=== PATIENT | male | born 2000 | race Two or more races ===

== ENCOUNTER 2024-03-06 15:10 | Outpatient (RCR) | payer MEDICAID, SELFPAY ==
--- NOTE | 2024-03-06 15:49 | PT.OIERPT ---
PT OP Initial Eval Patient Information Outpatient Physical Therapy Treatment Date: 03/06/24 Visit Reasons: LEFT KNEE PAIN Medical Diagnosis: Left Knee Pain Treatment Dx #1: Left Knee Pain Start of Care: 03/06/24 Date of Onset: 1 year ago Smoking Status Smoking Status: Never smoker Initial Assessment Subjective: Pt is a 24 y/o male reports of chronic left knee pain (09/21) with popping since he injured his knee ~ 1 year ago. Pt's xray negative no MRI has been done. Pt has limitation with standing, walking, chores, self care, gym activities, balance, work duties, and recreational activities. Objective: Right Knee AROM: 0 deg to 130 deg with pain Right Knee MMTs: grossly 4-/5 Right Hip MMTs: grossly 3+/5 Special Test (+) anders's (+) ana test (+) ant knee compression test Assessment: Pt demonstrate right knee pain consistent with patellofemoral syndrome leading to difficulty with ADLs. Pt will benefit from physical therapy to increase ROM, strength, and work on knee stability. 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 1) Increase right knee AROM WNL in 6 wks to be able to perform squatting activities 2) Increase right knee MMTs grossly 4/5 in 6 wks to be able to perform stairs and steps 3) Increase right hip MMTs grossly to 4-/5 in 6 wks to be able to perform recreational activities 4) Decrease knee pain to 2/10 in 6 wks to be able to perform work duties 5) Indep with HEP Treatment Plan 1) Manual Therapy 2) Therapeutic Activities 3) Therapeutic Exercises 4) Modalities (ice, heat) 5) Balance Training Frequency and Duration: 2 x wk for 6 wks Certification Dates: 03/06/24 to 06/04/24 Procedure Charges OP PT Eval Mod Complex 30 minutes: Yes
== END 2024-03-14 23:59 | disposition home or self-care (01) ==
LOC: CPTX 15:10
PROVIDERS: PCP Nurse Practitioner Family; Referring Provider Nurse Practitioner Family; Visit Provider Nurse Practitioner Family
DX: M25.562 Pain in left knee (principal); R26.2 Difficulty in walking, not elsewhere classified; R26.89 Other abnormalities of gait and mobility; G89.29 Other chronic pain; S89.92XD Unspecified injury of left lower leg, subsequent encounter; X58.XXXD Exposure to other specified factors, subsequent encounter
CPT/HCPCS: 97162

== ENCOUNTER 2024-04-10 13:00 | Outpatient (RCR) | payer MEDICAID, SELFPAY ==
--- NOTE | 2024-03-16 16:00 | PT.ODAYNRPT ---
PT Outpatient Daily Note OP Daily Note Outpatient Physical Therapy Treatment Date: 03/16/24 Visit Reasons: Left knee pain Subjective: Pt's knee continues to pop. Pt mentioned he popping his knee intentionally to relief pain. Objective: Please see flow chart for list of ther ex performed Assessment: tolerate exercises with minimal pain Plan: Continue with PT Length of Time (minutes) of Treatment: 30 Minutes Procedure Charges Therapeutic Exercise 30 minutes: Yes
--- NOTE | 2024-03-23 15:53 | PT.ODAYNRPT ---
PT Outpatient Daily Note OP Daily Note Outpatient Physical Therapy Treatment Date: 03/23/24 Visit Reasons: Left knee pain Subjective: Pt reports he goes to the gym daily and rides his bicycle. Pt points to pain on the front of the knee below the knee cap. Objective: Please see flow sheet for ther ex list. Assessment: Progression of interventions completed with minimal muscle fatigue, no pain to report. Pt demonstrates knee extension lag during SLR exercise, verbal cues for correction pt complied. Plan: Continue with POC. Length of Time (minutes) of Treatment: 30 Minutes Procedure Charges Therapeutic Exercise 30 minutes: Yes
--- NOTE | 2024-04-05 14:58 | PT.ODAYNRPT ---
PT Outpatient Daily Note OP Daily Note Outpatient Physical Therapy Treatment Date: 04/05/24 Visit Reasons: Left knee pain Subjective: Pt reports minimal changes in knee symptoms, notices knees are not popping as much as before. Pt reports compliance with HEP. Objective: Please see flow sheet for ther ex list. Assessment: Progressing interventions per pt tolerance. Plan: Assess response to treatment. Length of Time (minutes) of Treatment: 30 Minutes Procedure Charges Therapeutic Exercise 30 minutes: Yes
--- NOTE | 2024-04-10 14:20 | PT.ODAYNRPT ---
PT Outpatient Daily Note OP Daily Note Outpatient Physical Therapy Treatment Date: 04/10/24 Visit Reasons: Left knee pain Subjective: Pt's knee pain is about the same but notice less clicking. Objective: Please see flow chart for list of ther ex performed Assessment: tolerate exercises minimal change in knee pain post PT session. Pt unable to perform sitting SLE +ER in sitting due to back pain. Modified exercise back to supine. Pt was able to complete instructed reps Plan: Continue with PT Length of Time (minutes) of Treatment: 30 Minutes Procedure Charges Therapeutic Exercise 30 minutes: Yes
== END 2024-04-14 23:59 | disposition home or self-care (01) ==
LOC: CPTX 13:00
PROVIDERS: PCP Nurse Practitioner Family; Referring Provider Nurse Practitioner Family; Visit Provider Nurse Practitioner Family
DX: M25.562 Pain in left knee (principal); G89.29 Other chronic pain; R26.2 Difficulty in walking, not elsewhere classified; R26.89 Other abnormalities of gait and mobility
CPT/HCPCS: 97110

== ENCOUNTER 2024-04-19 12:52 | Outpatient (RCR) | payer MEDICAID, SELFPAY ==
--- NOTE | 2024-04-19 15:50 | PT.ODS1RPT ---
PT OP Progress/Discharge Note Date of Service: 04/19/24 Progress Note/DC Note Progress Note/Discharge Note: DC Note Patient Information Visit Reasons: left knee pain Medical Diagnosis: Left Knee Pain Treatment Dx #1: Left Knee Pain Service Continue Service or Discharge: Discharge Discharge Date: 04/19/24 Status Subjective: Pt's knee is a little stronger but continues to have pain and clicking. Due to pain Pt has limitation with working out, chores, recreational activities, and biking. Pt will like to stop and follow up with MD. Objective: Right Knee AROM: all motions are WNL Right Knee MMTs: grossly 4/5 Right Hip MMTs: grossly 4-/5 Assessment: Pt demonstrate functional knee mobility and strength, however, continues to have pain leading to difficulty with ADLs. Pt will no longer benefit from physical therapy due to minimal progress towards goals. Recommend knee MRI to help rule in/out nature of pain. Pt was instructed on HEP last session and educated to continue exercises to maintain overall mobility. Pt performed all exercises safely, thank you for your referrals. Plan: D/C home with HEP and follow up with PRN Procedure Charges Therapeutic Exercise 30 minutes: Yes
== END 2024-05-12 23:59 | disposition home or self-care (01) ==
LOC: CPTX 12:52
PROVIDERS: PCP Nurse Practitioner Family; Referring Provider Nurse Practitioner Family; Visit Provider Nurse Practitioner Family
DX: M25.562 Pain in left knee (principal); R26.89 Other abnormalities of gait and mobility; R26.2 Difficulty in walking, not elsewhere classified; G89.29 Other chronic pain
CPT/HCPCS: 97110

== ENCOUNTER → 2025-02-02 | Outpatient (CLI) | payer MEDICAID, SELFPAY ==
--- NOTE | 2025-02-02 | XR_ITS ---
Exam: MRI knee without contrast, left INDICATIONS: Left knee pain crepitus and instability 6 months post injury December 2023 Date and time of exam: February 02, 2025, 0704 hours Technique: Multiple axial, coronal, and sagittal sections on the knee have been obtained. T2-Weighted sagittal, fat-suppressed images, TR 3,500, TE 62, T2 weighted coronal fat-saturated images, TR 3,500, TE 62 Proton density sagittal sections, TR 1800, TE 31. T-1 weighted coronal images, TR 524, TE 13.0 Findings: Medial meniscus anterior horn intact. Medial meniscus, body intact. Posterior horn medial meniscus intact. Lateral meniscus anterior horn is intact Lateral meniscus, body is intact Posterior horn lateral meniscus is intact Anterior cruciate ligament moderate strain Posterior cruciate ligament appears intact. Knee effusion is small. Quadriceps and patellar tendons appear intact. There is no evidence of tendinosis. Inflammatory change or fracture of Hoffa's fat pad is not seen. Medial patellar facet demonstrates moderate thinning. Lateral patellar facet cartilage demonstrates moderate thinning. Trochlear cartilage demonstrates moderate thinning. Marrow signal adequate. Medial collateral ligament appears intact. No meniscocapsular separation is seen. Illiotibial band and fibular collateral ligament are intact. Biceps femoris tendons appear intact. Medial femoral condylar articular cartilage demonstrates moderate thinning. Lateral femoral condylar articular cartilage demonstrates moderate thinning. Tibial plateau cartilage demonstrates moderate thinning. Impression: Moderate attenuation anterior cruciate ligament
== END | disposition home or self-care (01) ==
PROVIDERS: PCP Nurse Practitioner Family; Referring Provider Nurse Practitioner Family; Visit Provider Nurse Practitioner Family
DX: M23.92 Unspecified internal derangement of left knee (principal)
CPT/HCPCS: 73721